=== PATIENT | male | born 1950 | race Caucasian/White ===

== ENCOUNTER 2019-03-10 06:19 | Inpatient (IN) | payer OTHER ==
[2019-03-05 09:44] VITALS: BMI 34.2
[2019-03-10] MEDS ORDERED: CEFAZOLIN 2 GM in DEXTROSE 5%-WATER - 50 ML IVPB ONE (06:24)
[2019-03-10] MEDS ORDERED: GABAPENTIN 300 MG CAPSULE (FP) PO ONE (06:24)
[2019-03-10] MEDS ORDERED: TRANEXAMIC ACID 1000 MG/10 ML VIAL IVPUSH ONE (06:24)
[2019-03-10] MEDS ORDERED: CELECOXIB 200 MG CAPSULE PO ONE (06:24)
[2019-03-10] MEDS ORDERED: oxyCODONE HCL 10 MG SUSTAINED ACTING TABLET PO ONE (06:24)
[2019-03-10] MEDS ORDERED: VANCOMYCIN 1,000 MG VIAL (RESTRICTED TO ID ONLY) ONE (06:40)
[2019-03-10] MEDS ORDERED: ceFAZolin SODIUM 1 GM VIAL ONE ×2 (06:40→07:10)
[2019-03-10] MEDS ORDERED: BUPIVACAINE LIPOSOME/PF (EXPAREL) 266 MG/20 ML VIAL ONE (06:44)
[2019-03-10] MEDS ORDERED: MIDAZOLAM HCL 2 MG/2 ML SINGLE DOSE VIAL ONE (06:44)
[2019-03-10] MEDS ORDERED: SODIUM CHLORIDE 0.9% P/F 10 ML VIAL IJ ONE (07:09)
[2019-03-10] MEDS ORDERED: PROPOFOL 20 ML ONE ×2 (07:11→07:14)
[2019-03-10] MEDS ORDERED: SUCCINYLCHOLINE CHLORIDE 200 MG/10 ML VIAL ONE (07:17)
[2019-03-10] MEDS ORDERED: ONDANSETRON 4 MG/2 ML VIAL IVPUSH PRN (07:26)
[2019-03-10] MEDS ORDERED: MAGNESIUM HYDROX 2400MG/30ML ORAL SUSPENSION 30 ML CUP PO PRN (07:26)
[2019-03-10] MEDS ORDERED: MAG HYDROX/AL HYDROX/SIMETH 30 ML UNIT-DOSE CUP PO PRN (07:26)
--- NOTE | 2019-03-10 07:26 | HP ---
Satellite [facility] - Chief Complaint Chief Complaint: right knee pain - Past Medical History Allergies/Adverse Reactions: Allergies Allergy/AdvReac Type Severity Reaction Status Date / Time No Known Allergies Allergy Verified 03/10/19 06:53 - Current Medications Current Medications: Home Medications Medication Instructions Recorded Tamsulosin HCl [Flomax] 0.4 mg PO HS 03/05/19 Satellite Physical Exam - Physical Examination Vital Signs: Vital Signs Period Temp Pulse Resp BP Sys/Booker Pulse Ox Last 24 Hr 98.6 F 76 16 123/89 95 General Appearance: Well Nourished, Well Developed, Alert & Oriented x3 ENT: Clear Lung: Normal air movement Heart: Regular rate & rhythm Extremities: Other (right knee- + swelling, + ttp , decr rom ,nvi, xrays show grade 4 tricompartmental djd) Neurological: Intact, Alert, Oriented Satellite Impression/Plan - Impression/Plan Impression: right knee djd Operative Procedure: right loyd tkr Date to be Performed: 03/10/19
[2019-03-10] MEDS ORDERED: LACTATED RINGERS SOLUTION 1,000 ML IV SCH (07:30)
[2019-03-10] MEDS ORDERED: oxyCODONE HCL 5 MG TABLET PO PRN (09:03)
[2019-03-10] MEDS ORDERED: VANCOMYCIN 1,000 MG VIAL (RESTRICTED TO ID ONLY) IVPB ONE (09:12)
--- NOTE | 2019-03-10 09:46 | OP ---
Operative Note - Note: Operative Date: 03/10/19 (mello) Pre-Operative Diagnosis: right knee djd Operation: right loyd tkr Post-Operative Diagnosis: Same as Pre-op Surgeon: Clem Pete Forge Hand: Lorenzo Castillo Anesthesiologist/EGG PACKER: Tyson Schneider Anesthesia: Spinal, Local Specimens Removed: bone fragments Estimated Blood Loss (mls): 100 Operative Report Dictated: Yes
[2019-03-10] MEDS ORDERED: oxyCODONE HCL 10 MG SUSTAINED ACTING TABLET PO SCH (10:00)
[2019-03-10] MEDS ORDERED: ACETAMINOPHEN 325 MG TABLET (FP) PO ONE (10:30)
[2019-03-10] MEDS: PANTOPRAZOLE 40 MG TABLET (FP) PO SCH (12:31)
[2019-03-10] MEDS: MULTIVITAMINS (DAILY MVI) TABLET (FP) PO SCH (12:40)
--- NOTE | 2019-03-10 13:31 | CONSULT ---
Consult Consult Specialty:: IM Referred by:: Dr Clem Pete Reason for Consultation:: medical management - History of Present Illness Chief Complaint: right knee pain History of Present Illness: 68 yo man came in for left loyd thr due to ongoing DJD which has become severe. denies chest pain, palpitations, nausea, vomiting, diarrhea, fever - History Source History Provided By: Patient Limitations to Obtaining History: No Limitations - Past Medical History Cardio/Vascular: Yes: HTN Renal/: Yes: BPH - Alcohol/Substance Use Hx Alcohol Use: Yes (OCCASIONALLY) - Smoking History Smoking history: Never smoked Have you smoked in the past 12 months: No Home Medications - Allergies Allergies/Adverse Reactions: Allergies Allergy/AdvReac Type Severity Reaction Status Date / Time No Known Allergies Allergy Verified 03/10/19 06:53 - Home Medications Home Medications: Ambulatory Orders Tamsulosin HCl [Flomax] 0.4 mg PO HS 03/05/19 Aspirin [ASA -] 325 mg PO DAILY@0800 tablet 03/10/19 Oxycodone HCl/Acetaminophen [Percocet 5-325 mg Tablet -] 1 - 2 tab PO Q6H #50 tab MDD 8 03/10/19 Review of Systems - Review of Systems Constitutional: reports: No Symptoms Eyes: reports: No Symptoms HENT: reports: No Symptoms Neck: reports: No Symptoms Cardiovascular: reports: No Symptoms Respiratory: reports: No Symptoms Gastrointestinal: reports: No Symptoms Genitourinary: reports: Frequency Musculoskeletal: reports: Joint Pain (right knee post-op pain) Integumentary: reports: No Symptoms Neurological: reports: No Symptoms Endocrine: reports: No Symptoms Hematology/Lymphatic: reports: No Symptoms Physical Exam Vital Signs: Vital Signs Temperature 98 F 03/10/19 11:26 Pulse Rate 55 L 03/10/19 11:26 Respiratory Rate 18 03/10/19 12:52 Blood Pressure 110/66 03/10/19 11:26 O2 Sat by Pulse Oximetry (%) 100 03/10/19 12:52 Constitutional: Yes: Well Nourished Eyes: Yes: WNL HENT: Yes: WNL Neck: Yes: WNL Cardiovascular: Yes: WNL Respiratory: Yes: WNL Gastrointestinal: Yes: WNL ...Rectal Exam: Yes: WNL, Deferred Renal/: Yes: WNL Musculoskeletal: Yes: Joint Stiffness (right knee post-op stiffness) Extremities: Yes: WNL Edema: No Integumentary: Yes: WNL Wound/Incision: Yes: Clean/Dry, Well Approximated Neurological: Yes: WNL Psychiatric: Yes: WNL Assessment/Plan 68 yo man right loyd tkr today. no complications. cont pain management. incentive spirometry. -GI, DVT prophylaxis. -peripheral neuropathy: on neurontin -constipation: cont colace, senna. improving -BPH: on flomax, proscar -oral diet -PT/OT/OOB as tolerated -DC planned for tomorrow.
[2019-03-10] MEDS: CEFAZOLIN 2 GM/D5W 2 GM/50 ML ML IVPB SCH ×2 (16:50→23:21)
[2019-03-10] MEDS: ACETAMINOPHEN 325 MG TABLET (FP) PO SCH ×2 (18:01→23:22)
--- NOTE | 2019-03-10 18:10 | SPEC ---
DATE OF OPERATION: 03/10/2019 PREOPERATIVE DIAGNOSIS: Degenerative joint disease, right knee. POSTOPERATIVE DIAGNOSIS: Degenerative joint disease, right knee. PROCEDURE: Right total knee replacement with robotic-assisted navigation (Makoplasty). SURGICAL ATTENDING: Clem Pete M.D. LEAD REFINERY SUPERVISOR: Yunior Lutz ANESTHESIA: Regional and spinal. CLOSURE: A Graham cemented Triathlon total knee system with a 5 femur, 6 tibia, 9 polyethylene, 35 patella, number 1 Vicryl fascia, 0 and 2-0 subcutaneous, 3-0 Monocryl subcuticular with skin glue for skin, 4-0 undyed Vicryl for pin sites. ESTIMATED BLOOD LOSS: Negligible. TOURNIQUET TIME: Approximately 25 minutes. COMPLICATIONS: None. CONDITION: To recovery room in stable condition. DESCRIPTION OF OPERATIVE PROCEDURE: Patient was taken to the operating room on March 10, 2019. Regional and general anesthesia was administered by the anesthesiologist. IV Kefzol and TXA were administered by the anesthesiologist. Well-padded pneumatic tourniquet was placed on the proximal thigh. The right lower extremity was prepped and draped in the usual sterile fashion. The leg was exsanguinated with an Esmarch bandage, and tourniquet was inflated to 275 mmHg. A 12 to 15-cm longitudinal midline incision was incised while centered over the patella. The dissection was carried down to the level of the extensor mechanism with sufficient flaps made to adequately perform the procedure. A medial parapatellar arthrotomy was then performed. We made a cuff of tissue on the patella for later closure. The patella was inverted, the knee was flexed up. The fat pad was excised. The subperiosteal dissection was on the anteromedial proximal tibia around towards the direction of the MCL. The ACL and the PCL were transected and debrided. The meniscal remnants of the medial and lateral meniscus were debrided and removed. This allowed the knee to be able to "be brought forward." The checkpoints were malleted into the tibia and into the femur. Two threaded pins were drilled anteroposteriorly proximal to the knee through the previous incision, through the anterior cortex, then just engaging the posterior cortex. To these pins was assembled the femoral navigation array. One handbreadth below the tibial tubercle, 2 stab incisions were used to drill 2 threaded pins in parallel fashion into the tibia, again through the anterior cortex and just engaging the posterior cortex. To these pins was fastened the tibial arrays. The knee was then registered with the navigation device with center of rotation of the hip, medial and lateral malleoli, both checkpoints, and multiple points on both the femur and the tibia to ensure excellent registration. The navigation device was directed off the "top of the bubbles" on both the femur and the tibia. The navigation passed within less than 0.5 mm to plan. The knee was then thoroughly inspected to remove all osteophytes both medially, laterally, and on the femur and the tibia, and whatever osteophytes were available for dissection. The knee was then taken to extension and to flexion, and stressed in both varus and valgus to assess flexion gaps. The virtual position of the components on the navigation device were then manipulated to optimize the position and to ensure equal gaps in both flexion and extension, and both medially and laterally. The robot was then brought into the field and was registered. The cuts were then made both on the femur and on the tibia as to plan. All osteophytes posteriorly were then removed as well. The gaps were then measured again in flexion and extension to be equal in both flexion and extension and medial and laterally. The femoral notch was then made, as we were doing a posterior stabilizing component, with the appropriate sized box. Trial reduction of the femur achieved excellent [id number] fit. A tibial baseplate of appropriate polyethylene thickness was "floated in the knee." It was ensured to be in the excellent position by navigation devices and was pinned in place. The knee was taken through a range of motion, and found to have excellent stability throughout flexion and extension. The patella was calibrated for thickness and osteotomized down to the appropriate level. The appropriate lollipop was used to drill the lug holes in the patella and the trial button was applied. The knee was taken through a range of motion and found to have excellent tracking of the patella, and patella from full extension to full flexion. Trial components were removed, the keel was punched and drilled, and a sclerotic bone on the tibia was drilled to help with cement interdigitation. The knee was thoroughly irrigated with the pulse antibiotic naval police coxswain. The real components were then cemented in using monitored arrangement cement techniques with antibiotic cement, and pressurization and extension. After the cement was hardened, the knee was thoroughly inspected to remove any extra cement. The real polyethylene component was then clipped into place. Range of motion, stability, and tracking were as described earlier. The checkpoints and the pins were removed. The knee was thoroughly irrigated with antibiotic irrigation. Vancomycin powder was placed into the knee for antibiotic prophylaxis. The medial parapatellar arthrotomy was then closed using number 1 Vicryl interrupted suture. After closure of the deep layer, the knee was taken through a range of motion, and found to have excellent stability of the patella with no dislocation and no undue tension on the repair. The subcutaneous was pulse antibiotic irrigated, and was then closed with 2-0 Vicryl, 3-0 Monocryl subcuticular with the skin glue for the skin. The distal tibial pin site was irrigated thoroughly as well and then closed with 4-0 undyed Vicryl. A sterile Aquacel dressing was applied, followed by a Cruz dressing. Tourniquet was deflated. Total tourniquet time was approximately 25 minutes. No complications. Patient was awakened from anesthesia and transferred to recovery room in stable condition. Postoperative x-rays revealed excellent position of the components. Nicki [id number]
[2019-03-10] MEDS: oxyCODONE HCL 10 MG SUSTAINED ACTING TABLET PO SCH (21:03)
[2019-03-10] MEDS: TAMSULOSIN HCL 0.4 MG CAP PO SCH (21:07)
[2019-03-10] MEDS: SENNOSIDES/DOCUSATE COMBO (SENNA PLUS) TABLET (UD) PO SCH (21:07)
[2019-03-10] MEDS: GABAPENTIN 300 MG CAPSULE (FP) PO SCH (21:07)
[2019-03-11] MEDS: ACETAMINOPHEN 325 MG TABLET (FP) PO SCH ×3 (05:52→18:26)
[2019-03-11] MEDS: oxyCODONE HCL 5 MG TABLET PO PRN ×3 (05:53→21:24)
[2019-03-11 08:08] LABS: HEMATOCRIT 36.6 % (35.4-49); HEMOGLOBIN 12.5 GM/dl (11.7-16.9); MCH 29.3 pg (25.7-33.7); MCHC 34.2 g/dl (32.0-35.9); MEAN CELL VOLUME 85.7 fl (80-96); MEAN PLT VOLUME 7.6 fl (7.5-11.1); PLATELET COUNT 323 K/MM3 (134-434); RBC 4.27 M/mm3 (4.00-5.60); RDW 13.3 % (11.9-15.9); WHITE BLOOD COUNT 10.4 K/mm3 (4.0-10.8)
[2019-03-11] MEDS: ASPIRIN 325 MG TABLET PO SCH (08:08)
--- NOTE | 2019-03-11 08:28 | PN ---
Progress Note (short form) - Note Progress Note: Ortho Pt seen and examined s/p right loyd tkr pod #1 Selected Entries 03/11/19 06:19 Temperature 98.3 F Pulse Rate 74 Respiratory 19 Rate Blood Pressure 125/65 Laboratory Tests 03/11/19 06:55 WBC 10.4 Hgb 12.5 Hct 36.6 Plt Count 323 dressing c/d/i, calf soft, nt rom 0-40, nvi a/p PT dvt ppx pain control d/c home tomorrow if stable
[2019-03-11] MEDS: PANTOPRAZOLE 40 MG TABLET (FP) PO SCH (10:07)
[2019-03-11] MEDS: MULTIVITAMINS (DAILY MVI) TABLET (FP) PO SCH (10:07)
[2019-03-11] MEDS: SENNOSIDES/DOCUSATE COMBO (SENNA PLUS) TABLET (UD) PO SCH ×2 (10:07→21:24)
[2019-03-11] MEDS: oxyCODONE HCL 10 MG SUSTAINED ACTING TABLET PO SCH ×2 (10:08→21:24)
[2019-03-11] MEDS: GABAPENTIN 300 MG CAPSULE (FP) PO SCH ×2 (10:09→21:24)
--- NOTE | 2019-03-11 10:13 | PN ---
Progress Note, Physician History of Present Illness: 68 yo man came in for left loyd thr due to ongoing DJD which has become severe. denies chest pain, palpitations, nausea, vomiting, diarrhea, fever - Current Medication List Current Medications: Active Medications Acetaminophen (Tylenol -) 650 mg PO Q6H COUNT INCLUDES THE [facility] Stop: 03/13/19 17:59 Last Admin: 03/11/19 05:52 Dose: 650 mg Al Hydroxide/Mg Hydroxide (Mylanta Oral Suspension -) 30 ml PO Q4H PRN PRN Reason: DYSPEPSIA Aspirin (Asa -) 325 mg PO DAILY@0800 COUNT INCLUDES THE [facility] Last Admin: 03/11/19 08:08 Dose: 325 mg Fentanyl (Sublimaze Injection -) 50 mcg IVPUSH [id number] PRN PRN Reason: PAIN-PACU ORDER X 4 DOSES ONLY Gabapentin (Neurontin -) 300 mg PO BID COUNT INCLUDES THE [facility] Last Admin: 03/11/19 10:09 Dose: 300 mg Magnesium Hydroxide (Milk Of Magnesia -) 30 ml PO PRN PRN PRN Reason: CONSTIPATION Multivitamins/Minerals/Vitamin C (Tab-A-Vit -) 1 tab PO DAILY COUNT INCLUDES THE [facility] Last Admin: 03/11/19 10:07 Dose: 1 tab Ondansetron HCl (Zofran Injection) 4 mg IVPUSH Q6H PRN PRN Reason: NAUSEA Oxycodone HCl (Roxicodone -) 5 mg PO Q3H PRN PRN Reason: PAIN LEVEL 1-5 Oxycodone HCl (Roxicodone -) 10 mg PO Q3H PRN PRN Reason: PAIN LEVEL 6-10 Last Admin: 03/11/19 05:53 Dose: 10 mg Oxycodone HCl (Oxycontin -) 10 mg PO BID COUNT INCLUDES THE [facility] Last Admin: 03/11/19 10:08 Dose: 10 mg Pantoprazole Sodium (Protonix -) 40 mg PO DAILY COUNT INCLUDES THE [facility] Last Admin: 03/11/19 10:07 Dose: 40 mg Senna/Docusate Sodium (Pericolace -) 2 tablet PO BID COUNT INCLUDES THE [facility] Last Admin: 03/11/19 10:07 Dose: 2 tablet Tamsulosin HCl (Flomax -) 0.4 mg PO HS COUNT INCLUDES THE [facility] Last Admin: 03/10/19 21:07 Dose: 0.4 mg - Objective Vital Signs: Vital Signs Temperature 98 F 03/11/19 08:42 Pulse Rate 79 03/11/19 08:42 Respiratory Rate 18 03/11/19 08:42 Blood Pressure 128/65 03/11/19 08:42 O2 Sat by Pulse Oximetry (%) 96 03/11/19 08:35 Constitutional: Yes: Well Nourished Eyes: Yes: WNL HENT: Yes: WNL Neck: Yes: WNL Cardiovascular: Yes: WNL Respiratory: Yes: WNL Gastrointestinal: Yes: WNL ...Rectal Exam: Yes: WNL, Deferred Genitourinary: Yes: WNL Musculoskeletal: Yes: WNL Extremities: Yes: WNL Edema: No Integumentary: Yes: WNL Wound/Incision: Yes: Clean/Dry, Well Approximated Neurological: Yes: WNL ...Motor Strength: WNL Labs: CBC, BMP 03/11/19 06:55 Assessment/Plan 68 yo man right loyd tkr POD #1. no complications. now getting PT. well tolerated. cont pain management. incentive spirometry. -GI, DVT prophylaxis. -peripheral neuropathy: on neurontin -constipation: cont colace, senna. improving -BPH: on flomax, proscar -oral diet -PT/OT/OOB as tolerated -blood work reviewed. WNL -DC planned for tomorrow.
[2019-03-11] MEDS: TAMSULOSIN HCL 0.4 MG CAP PO SCH (21:23)
[2019-03-12 06:15] VITALS: TEMP 98.1
[2019-03-12] MEDS: ACETAMINOPHEN 325 MG TABLET (FP) PO SCH ×3 (06:25→11:44)
[2019-03-12] MEDS: oxyCODONE HCL 5 MG TABLET PO PRN (06:26)
--- NOTE | 2019-03-12 07:24 | PN ---
Progress Note, Physician History of Present Illness: 68 yo man came in for left loyd thr due to ongoing DJD which has become severe. denies chest pain, palpitations, nausea, vomiting, diarrhea, fever - Current Medication List Current Medications: Active Medications Acetaminophen (Tylenol -) 650 mg PO Q6H [facility] Stop: 03/13/19 17:59 Last Admin: 03/12/19 06:25 Dose: 650 mg Al Hydroxide/Mg Hydroxide (Mylanta Oral Suspension -) 30 ml PO Q4H PRN PRN Reason: DYSPEPSIA Aspirin (Asa -) 325 mg PO DAILY@0800 [facility] Last Admin: 03/11/19 08:08 Dose: 325 mg Fentanyl (Sublimaze Injection -) 50 mcg IVPUSH [id number] PRN PRN Reason: PAIN-PACU ORDER X 4 DOSES ONLY Gabapentin (Neurontin -) 300 mg PO BID [facility] Last Admin: 03/11/19 21:24 Dose: 300 mg Magnesium Hydroxide (Milk Of Magnesia -) 30 ml PO PRN PRN PRN Reason: CONSTIPATION Multivitamins/Minerals/Vitamin C (Tab-A-Vit -) 1 tab PO DAILY [facility] Last Admin: 03/11/19 10:07 Dose: 1 tab Ondansetron HCl (Zofran Injection) 4 mg IVPUSH Q6H PRN PRN Reason: NAUSEA Oxycodone HCl (Roxicodone -) 5 mg PO Q3H PRN PRN Reason: PAIN LEVEL 1-5 Oxycodone HCl (Roxicodone -) 10 mg PO Q3H PRN PRN Reason: PAIN LEVEL 6-10 Last Admin: 03/12/19 06:26 Dose: 10 mg Oxycodone HCl (Oxycontin -) 10 mg PO BID [facility] Last Admin: 03/11/19 21:24 Dose: 10 mg Pantoprazole Sodium (Protonix -) 40 mg PO DAILY [facility] Last Admin: 03/11/19 10:07 Dose: 40 mg Senna/Docusate Sodium (Pericolace -) 2 tablet PO BID [facility] Last Admin: 03/11/19 21:24 Dose: 2 tablet Tamsulosin HCl (Flomax -) 0.4 mg PO HS [facility] Last Admin: 03/11/19 21:23 Dose: 0.4 mg - Objective Vital Signs: Vital Signs Temperature 98.1 F 03/12/19 06:00 Pulse Rate 105 H 06/07/19 06:00 Respiratory Rate 18 03/12/19 06:00 Blood Pressure 121/79 03/12/19 06:00 O2 Sat by Pulse Oximetry (%) 97 03/12/19 06:00 Constitutional: Yes: Well Nourished, No Distress Eyes: Yes: WNL HENT: Yes: WNL Neck: Yes: WNL Cardiovascular: Yes: WNL Respiratory: Yes: WNL Gastrointestinal: Yes: WNL Musculoskeletal: Yes: WNL Extremities: Yes: WNL Edema: No Assessment/Plan 68 yo man right loyd tkr POD #2. no complications. PT is well tolerated. cont pain management. incentive spirometry. -GI, DVT prophylaxis. -peripheral neuropathy: on neurontin -constipation: cont colace, senna. improving -BPH: on flomax, proscar -oral diet -PT/OT/OOB as tolerated -blood work reviewed. WNL -DC planned for today
--- NOTE | 2019-03-12 08:10 | PN ---
Progress Note (short form) - Note Progress Note: Ortho Pt seen and examined s/p right loyd tkr pod #2 Selected Entries 03/12/19 06:00 Temperature 98.1 F Pulse Rate 105 H Respiratory 18 Rate Blood Pressure 121/79 Laboratory Tests 03/12/19 06:58 WBC Pending Hgb Pending Hct Pending Plt Count Pending dressing c/d/i, calf soft, nt rom 0-40, nvi a/p PT dvt ppx pain control d/c home today f/u in 1 week
--- NOTE | 2019-03-12 08:12 | DS ---
Physical Examination Vital Signs: Vital Signs Temperature 98.1 F 03/12/19 06:00 Pulse Rate 105 H 03/12/19 06:00 Respiratory Rate 18 03/12/19 06:00 Blood Pressure 121/79 03/12/19 06:00 O2 Sat by Pulse Oximetry (%) 97 03/12/19 06:00 Discharge Summary Reason For Visit: OSTEOARTHRITIS Procedures: Principal: right tkr Hospital Course: admitted for elective right loyd tkr, uneventful post-op, stable for d/c Condition: Good - Instructions Diet, Activity, Other Instructions: Post-op Instructions-Total Knee Replacement Call the office for a follow-up appointment in 1 week - [phone] Aspirin 325mg daily for 6 weeks. Pain medication was sent into your pharmacy. Apply Graduated Compression Stockings (TEDs) to both lower extremities- remove daily for hygiene ONLY Apply Sequential Compression Device (SCDs) to both Lower extremities remove for PT and hygiene ONLY Apply cold packs to affected area for 15 minutes every 2 hours. Physical Therapist will come to your home for the first 5 days. You will be set up with outpatient PT at your first post-operative visit. Patient may ambulate as tolerated-encourage self care (at least every 2-3 hours while awake) with walker or cane Maintain Aquacel (waterproof) dressing to operative wound (will be removed by surgeon at first office visit) Shower with Aquacel dressing in place-if Aquacel integrity compromised, remove and apply dry sterile dressing and notify Orthopedist. DO NOT SHOWER unless Orthopedists approves without Aquacel dressing CONTACT THE OFFICE FOR ANY CHANGE IN YOUR CONDITION (for example-fever greater than 102 degrees, excessive bleeding from operative site, purulent drainage, severe swelling or pain) GO TO THE EMERGENCY ROOM IF THERE IS A MEDICAL EMERGENCY Knee Precautions: * Keep a rolled towel under affected heel while in bed or chair (to keep knee in extension) * Keep affected leg elevated except during mealtimes * DO NOT PLACE PILLOW UNDER AFFECTED KNEE * If you have any questions, please do not hesitate to call the office - . Referrals: Clem Pete MD [Staff Physician] - Disposition: VNS/HOME HEALTH CARE - Home Medications Comprehensive Discharge Medication List: Ambulatory Orders Tamsulosin HCl [Flomax] 0.4 mg PO HS 03/05/19 Aspirin [ASA -] 325 mg PO DAILY@0800 tablet 03/10/19 Oxycodone HCl/Acetaminophen [Percocet 5-325 mg Tablet -] 1 - 2 tab PO Q6H #50 tab MDD 8 03/10/19
[2019-03-12 08:13] LABS: HEMATOCRIT 36.8 % (35.4-49); HEMOGLOBIN 12.3 GM/dl (11.7-16.9); MCH 28.8 pg (25.7-33.7); MCHC 33.3 g/dl (32.0-35.9); MEAN CELL VOLUME 86.3 fl (80-96); MEAN PLT VOLUME 7.9 fl (7.5-11.1); PLATELET COUNT 311 K/MM3 (134-434); RBC 4.26 M/mm3 (4.00-5.60); WHITE BLOOD COUNT 9.1 K/mm3 (4.0-10.8)
[2019-03-12] MEDS: ASPIRIN 325 MG TABLET PO SCH (08:30)
[2019-03-12 10:04] VITALS: BP 136/74; PULSE 94
[2019-03-12] MEDS: SENNOSIDES/DOCUSATE COMBO (SENNA PLUS) TABLET (UD) PO SCH (10:05)
[2019-03-12] MEDS: GABAPENTIN 300 MG CAPSULE (FP) PO SCH (10:05)
[2019-03-12] MEDS: MULTIVITAMINS (DAILY MVI) TABLET (FP) PO SCH (10:06)
[2019-03-12] MEDS: oxyCODONE HCL 10 MG SUSTAINED ACTING TABLET PO SCH (10:06)
[2019-03-12] MEDS: PANTOPRAZOLE 40 MG TABLET (FP) PO SCH (10:06)
--- NOTE | 2019-03-12 15:38 | PATH ---
Surgical Pathology Report Patient Name: LORETTA FRIEDMAN Med. Rec. #: [id number] /Age/Gender: 1950 (Age: 68) / M Account: [id number] Location: [facility] Taken: 03/10/2019 Received: 03/10/2019 Reported: 03/12/2019 Physicians: Clem Pete M.D. Specimen(s) Received RIGHT KNEE BONES Clinical History Osteoarthritis right knee Final Diagnosis RIGHT KNEE BONES, RESECTION: DEGENERATIVE JOINT DISEASE, RIGHT KNEE. Electronically Signed Nelly Rubio M.D. Gross Description Received in formalin labeled "right knee bones," is a 12.0 x 10.0 x 1.5 cm aggregate of multiple portions of bone and soft tissue, consistent with knee bones. The tibial plateau measures 7.6 x 5.4 x 1.6 cm. One of the portions of bone displays a 2.0 cm in greatest dimension area of eburnation. The remaining articular surfaces are haddad-yellow and diffusely granular. The underlying trabecular bone is yellow and hard. Sporting Goods Salesperson sections are submitted in one cassette, following decalcification. /03/11/2019 saudi03/11/2019
== END 2019-03-12 13:25 | disposition home health service (06) | DRG 470 ==
LOC: FM/S 06:19
PROVIDERS: ADMIT Orthopaedic Surgery; ATTEND Orthopaedic Surgery
PROC: 8E0YXCZ Robotic Assisted Procedure of Lower Extremity (ICD-10-PCS; 2019-03-10)
PROC: 0SRC0J9 Replacement of Right Knee Joint with Synthetic Substitute, Cemented, Open Approach (ICD-10-PCS; principal; 2019-03-10 07:59)
DX: M17.11 Unilateral primary osteoarthritis, right knee (principal); I10 Essential (primary) hypertension; N40.0 Benign prostatic hyperplasia without lower urinary tract symptoms; G62.9 Polyneuropathy, unspecified; K59.00 Constipation, unspecified
CPT/HCPCS: 36415; 73560-TC-RT-FY; 85027; 88304-TC; 88311-TC; 94760; 97116-GP; 97163-GP

== ENCOUNTER 2019-07-09 08:49 | Inpatient (IN) | payer OTHER ==
--- NOTE | 2019-07-09 08:06 | HP ---
Satellite H - Chief Complaint Chief Complaint: left knee pain - Past Medical History Allergies/Adverse Reactions: Allergies Allergy/AdvReac Type Severity Reaction Status Date / Time No Known Allergies Allergy Verified 06/28/19 11:46 Cardiovascular: Yes: HTN Renal/: Yes: BPH - Current Medications Current Medications: Home Medications Medication Instructions Recorded Tamsulosin HCl [Flomax] 0.4 mg PO HS 03/05/19 Oxycodone HCl/Acetaminophen 1 - 2 tab PO Q6H #50 tab MDD 8 03/10/19 [Percocet 5-325 mg Tablet -] Satellite Physical Exam - Physical Examination General Appearance: Well Nourished, Well Developed, Alert & Oriented x3 ENT: Clear Lung: Normal air movement Heart: Regular rate & rhythm Extremities: Other (left knee- + Swelling, + ttp, decr rom, nvi, xrays show grade 4 tricompartmental djd) Neurological: Intact, Alert, Oriented Satellite Impression/Plan - Impression/Plan Impression: left knee djd Operative Procedure: left loyd tkr Date to be Performed: 07/09/19
[2019-07-09] MEDS ORDERED: TRANEXAMIC ACID 1000 MG/10 ML VIAL IVPUSH ONE (08:59)
[2019-07-09] MEDS ORDERED: CELECOXIB 200 MG CAPSULE PO ONE ×2 (08:59→09:30)
[2019-07-09] MEDS ORDERED: CEFAZOLIN 2 GM in DEXTROSE 5%-WATER - 50 ML IVPB ONE (08:59)
[2019-07-09] MEDS ORDERED: DEXAMETHASONE SOD PHOSPHATE 4 MG/1 ML VIAL ONE (09:03)
[2019-07-09] MEDS ORDERED: ONDANSETRON 4 MG/2 ML VIAL ONE (09:03)
[2019-07-09] MEDS ORDERED: ceFAZolin SODIUM 1 GM VIAL ONE ×2 (09:03→10:46)
[2019-07-09] MEDS ORDERED: MIDAZOLAM HCL 2 MG/2 ML SINGLE DOSE VIAL ONE (09:10)
[2019-07-09] MEDS ORDERED: BUPIVACAINE LIPOSOME/PF (EXPAREL) 266 MG/20 ML VIAL ONE (09:11)
[2019-07-09] MEDS ORDERED: TRANEXAMIC ACID 1000 MG/10 ML VIAL ONE ×2 (09:14)
[2019-07-09 09:42] VITALS: BMI 33.7
[2019-07-09] MEDS ORDERED: VANCOMYCIN 1,000 MG VIAL (RESTRICTED TO ID ONLY) ONE (10:46)
[2019-07-09] MEDS ORDERED: GELATIN, ABSORBABLE 12-7MM EACH SPONGE TP ONE (10:46)
[2019-07-09] MEDS ORDERED: THROMBIN (RECOMBINANT) 5,000 UNIT VIAL TP ONE (10:46)
[2019-07-09] MEDS ORDERED: MAG HYDROX/AL HYDROX/SIMETH 30 ML UNIT-DOSE CUP PO PRN (11:32)
[2019-07-09] MEDS ORDERED: MAGNESIUM HYDROX 2400MG/30ML ORAL SUSPENSION 30 ML CUP PO PRN (11:32)
[2019-07-09] MEDS ORDERED: ONDANSETRON 4 MG/2 ML VIAL IVPUSH PRN ×2 (11:32→13:04)
[2019-07-09] MEDS ORDERED: LACTATED RINGERS SOLUTION 1,000 ML IV SCH ×2 (11:45→13:15)
[2019-07-09] MEDS ORDERED: PROPOFOL 20 ML ONE (12:45)
[2019-07-09] MEDS ORDERED: VANCOMYCIN 1,000 MG VIAL (RESTRICTED TO ID ONLY) IVPB ONE (13:01)
[2019-07-09] MEDS ORDERED: traMADol HCL 50 MG TABLET PO PRN (13:04)
[2019-07-09] MEDS ORDERED: oxyCODONE HCL 5 MG TABLET PO PRN (13:04)
[2019-07-09] MEDS ORDERED: ONDANSETRON 4 MG/2 ML VIAL IVPB PRN (13:11)
--- NOTE | 2019-07-09 13:21 | OP ---
Operative Note - Note: Operative Date: 07/09/19 (mello) Pre-Operative Diagnosis: left knee djd Operation: left loyd tkr Post-Operative Diagnosis: Same as Pre-op Surgeon: Clem Pete Mortgage Loan Officer: Lorenzo Castillo Anesthesiologist/SHAPER SETTER: Hortencia Bhakta Anesthesia: Spinal, Local Specimens Removed: bone fragments Estimated Blood Loss (mls): 100 Operative Report Dictated: Yes
[2019-07-09] MEDS: ACETAMINOPHEN 325 MG TABLET (FP) PO SCH ×2 (14:15→21:12)
--- NOTE | 2019-07-09 18:17 | CONSULT ---
Consult - Past Medical History Cardio/Vascular: Yes: HTN Renal/: Yes: BPH Musculoskeletal: Yes: Osteoarthritis - Alcohol/Substance Use Hx Alcohol Use: Yes (OCCASIONALLY) - Smoking History Smoking history: Never smoked Have you smoked in the past 12 months: No Home Medications - Allergies Allergies/Adverse Reactions: Allergies Allergy/AdvReac Type Severity Reaction Status Date / Time No Known Allergies Allergy Verified 07/09/19 09:22 - Home Medications Home Medications: Ambulatory Orders Tamsulosin HCl [Flomax] 0.4 mg PO HS 03/05/19 Aspirin [ASA -] 325 mg PO DAILY@0800 tablet 07/09/19 Oxycodone HCl/Acetaminophen [Percocet 5-325 mg Tablet] 1 - 2 tab PO Q6H #50 tab MDD 8 07/09/19 Review of Systems - Review of Systems Cardiovascular: reports: No Symptoms Respiratory: reports: No Symptoms Gastrointestinal: reports: No Symptoms Physical Exam Vital Signs: Vital Signs Temperature 97.5 F L 07/09/19 15:03 Pulse Rate 64 07/09/19 15:03 Respiratory Rate 18 07/09/19 15:03 Blood Pressure 108/61 07/09/19 15:03 O2 Sat by Pulse Oximetry (%) 99 07/09/19 15:03 Cardiovascular: Yes: Regular Rate and Rhythm Respiratory: Yes: Regular, CTA Bilaterally Gastrointestinal: Yes: Normal Bowel Sounds, Soft Musculoskeletal: Yes: Joint Stiffness, Joint Swelling Edema: No Problem List - Problems (1) HTN (hypertension) Assessment/Plan: MONITOR BP EKG Code(s): I10 - ESSENTIAL (PRIMARY) HYPERTENSION (2) BPH (benign prostatic hyperplasia) Assessment/Plan: MONITOR UO Code(s): N40.0 - BENIGN PROSTATIC HYPERPLASIA WITHOUT LOWER URINRY TRACT SYMP (3) Osteoarthritis Assessment/Plan: Operative Date: 07/09/19 (mello) Pre-Operative Diagnosis: left knee djd Operation: left loyd tkr Post-Operative Diagnosis: Same as Pre-op Surgeon: Clem Pete [employer]ied Natural [employer] Plant Operator: Lorenzo Castillo Code(s): M19.90 - UNSPECIFIED OSTEOARTHRITIS, UNSPECIFIED SITE
[2019-07-09] MEDS: CEFAZOLIN 2 GM/D5W 2 GM/50 ML ML IVPB SCH (20:14)
[2019-07-09] MEDS: oxyCODONE HCL 10 MG SUSTAINED ACTING TABLET PO SCH (21:09)
[2019-07-09] MEDS: SENNOSIDES/DOCUSATE COMBO (SENNA PLUS) TABLET (UD) PO SCH (21:09)
[2019-07-09] MEDS: oxyCODONE HCL 5 MG TABLET PO PRN (21:10)
[2019-07-09] MEDS: TAMSULOSIN HCL 0.4 MG CAP PO SCH (21:10)
[2019-07-10] MEDS: ACETAMINOPHEN 325 MG TABLET (FP) PO SCH ×4 (03:38→21:18)
[2019-07-10] MEDS: CEFAZOLIN 2 GM/D5W 2 GM/50 ML ML IVPB SCH (03:38)
--- NOTE | 2019-07-10 06:36 | SPEC ---
DATE OF OPERATION: 07/09/2019 PREOPERATIVE DIAGNOSIS: Degenerative joint disease, left knee. POSTOPERATIVE DIAGNOSIS: Degenerative joint disease, left knee. PROCEDURE: Left total knee replacement with robotic-assisted navigation (Makoplasty). SURGICAL ATTENDING: Clem Pete MD [employer] TRUCK DISPATCHER: JONAS Lutz ANESTHESIA: Regional and spinal. CLOSURE: A Triathlon cemented total knee system with a 5 femur, 6 tibia, 11 polyethylene, 35 patella, No. 1 Vicryl fascia, 0 and 2-0 for subcutaneous, 3-0 Monocryl subcuticular with skin glue, and 4-0 undyed Vicryl for pin sites. ESTIMATED BLOOD LOSS: Less than 100 mL. COMPLICATIONS: None. CONDITION: To recovery room in stable condition. DESCRIPTION OF OPERATIVE PROCEDURE: Patient was taken to the operating room on July 09, 2019. Regional and general anesthesia was administered by the anesthesiologist. IV Kefzol and TXA were administered by the anesthesiologist. Well-padded pneumatic tourniquet was placed on the proximal thigh. The left lower extremity was prepped and draped in the usual sterile fashion. The leg was exsanguinated with an Esmarch bandage, and tourniquet was inflated to 275 mmHg. A 12- to 15-cm longitudinal midline incision was incised while centered over the patella. The dissection was carried down to the level of the extensor mechanism with sufficient flaps made to adequately perform the procedure. A medial parapatellar arthrotomy was then performed. We made a cuff of tissue on the patella for later closure. The patella was inverted, the knee was flexed up. The fat pad was excised. The subperiosteal dissection was on the anteromedial proximal tibia around towards the direction of the MCL. The ACL and the PCL were transected and debrided. The meniscal remnants of the medial and lateral meniscus were debrided and removed. This allowed the knee to be able to "be brought forward." The checkpoints were malleted into the tibia and into the femur. Two threaded pins were drilled anteroposteriorly proximal to the knee through the previous incision, through the anterior cortex, then just engaging the posterior cortex. To these pins was assembled the femoral navigation array. One handbreadth below the tibial tubercle, 2 stab incisions were used to drill 2 threaded pins in parallel fashion into the tibia, again through the anterior cortex and just engaging the posterior cortex. To these pins was fastened the tibial arrays. The knee was then registered with the navigation device with center of rotation of the hip, medial and lateral malleoli, both checkpoints, and multiple points on both the femur and the tibia to ensure excellent registration. The navigation device was directed off the "top of the bubbles" on both the femur and the tibia. The navigation passed within less than 0.5 mm to plan. The knee was then thoroughly inspected to remove all osteophytes both medially, laterally, and on the femur and the tibia, and whatever osteophytes were available for dissection. The knee was then taken to extension and to flexion and stressed in both varus and valgus to assess flexion gaps. The virtual position of the components on the navigation device were then manipulated to optimize the position and to ensure equal gaps in both flexion and extension, and both medially and laterally. The robot was then brought into the field and was registered. The cuts were then made both on the femur and on the tibia as to plan. All osteophytes posteriorly were then removed as well. The gaps were then measured again in flexion and extension to be equal in both flexion and extension and medial and laterally. The femoral notch was then made, as we were doing a posterior stabilizing component, with the appropriate sized box. Trial reduction of the femur achieved excellent [id number] fit. A tibial baseplate of appropriate polyethylene thickness was "floated in the knee." It was ensured to be in the excellent position by navigation devices and was pinned in place. The knee was taken through a range of motion and found to have excellent stability throughout flexion and extension. The patella was calibrated for thickness and osteotomized down to the appropriate level. The appropriate lollipop was used to drill the lug holes in the patella and the trial button was applied. The knee was taken through a range of motion and found to have excellent tracking of the patella, and patella from full extension to full flexion. Trial components were removed, the keel was punched and drilled, and a sclerotic bone on the tibia was drilled to help with cement interdigitation. The knee was thoroughly irrigated with the pulse antibiotic training director. The real components were then cemented in using monitored arrangement cement techniques with antibiotic cement, and pressurization and extension. After the cement was hardened, the knee was thoroughly inspected to remove any extra cement. The real polyethylene component was then clipped into place. Range of motion, stability, and tracking were as described earlier. The checkpoints and the pins were removed. The knee was thoroughly irrigated with antibiotic irrigation. Vancomycin powder was placed into the knee for antibiotic prophylaxis. The medial parapatellar arthrotomy was then closed using number 1 Vicryl interrupted suture. After closure of the deep layer, the knee was taken through a range of motion, and found to have excellent stability of the patella with no dislocation and no undue tension on the repair. The subcutaneous was pulse antibiotic irrigated, and was then closed with 2-0 Vicryl, 3-0 Monocryl subcuticular with the skin glue for the skin. The distal tibial pin site was irrigated thoroughly as well and then closed with 4-0 undyed Vicryl. A sterile Aquacel dressing was applied, followed by a Cruz dressing. Tourniquet was deflated. Total tourniquet time was approximately 75 minutes. No complications. Patient was awakened from anesthesia and transferred to recovery room in stable condition. Postoperative x-rays revealed excellent position of the components. Nicki [id number]
[2019-07-10] MEDS: oxyCODONE HCL 5 MG TABLET PO PRN (06:39)
[2019-07-10] MEDS: ASPIRIN 325 MG TABLET PO SCH (08:15)
[2019-07-10] MEDS: MULTIVITAMINS (DAILY MVI) TABLET (FP) PO SCH (09:08)
[2019-07-10] MEDS: PANTOPRAZOLE 40 MG TABLET (FP) PO SCH (09:08)
[2019-07-10] MEDS: oxyCODONE HCL 10 MG SUSTAINED ACTING TABLET PO SCH ×2 (09:08→21:19)
[2019-07-10] MEDS: SENNOSIDES/DOCUSATE COMBO (SENNA PLUS) TABLET (UD) PO SCH ×2 (09:09→21:18)
[2019-07-10 09:11] LABS: HEMATOCRIT 35.4 % (35.4-49); HEMOGLOBIN 12.1 GM/dl (11.7-16.9); MCH 27.9 pg (25.7-33.7); MCHC 34.1 g/dl (32.0-35.9); MEAN CELL VOLUME 81.9 fl (80-96); MEAN PLT VOLUME 7.9 fl (7.5-11.1); PLATELET COUNT 364 K/MM3 (134-434); RBC 4.33 M/mm3 (4.00-5.60); RDW 13.9 % (11.9-15.9); WHITE BLOOD COUNT 10.1 K/mm3 (4.0-10.8)
[2019-07-10 09:22] LABS: ALBUMIN 3.5 g/dl (3.4-5.0); BILIRUBIN,TOTAL 0.9 mg/dl (0.2-1); CALCIUM 8.6 mg/dl (8.5-10); CREATININE 0.7 mg/dl (0.55-1.3); POTASSIUM 4.6 mmol/L (3.5-5.1); TOT PROT 6.5 g/dl (6.4-8.2)
--- NOTE | 2019-07-10 20:01 | PN ---
Progress Note (short form) - Note Progress Note: AVSS COMFORTABLE CALF SOFT AND NT NVI ROM 0-70 IMP: DOING WELL PLAN: OOB, PT, DC TO HOME TOMORROW
[2019-07-10] MEDS: TAMSULOSIN HCL 0.4 MG CAP PO SCH (21:18)
[2019-07-11] MEDS ORDERED: PT OWN MED DRAWER 7, Y5N ONE (01:25)
[2019-07-11] MEDS: ACETAMINOPHEN 325 MG TABLET (FP) PO SCH ×2 (03:00→08:18)
[2019-07-11] MEDS: oxyCODONE HCL 5 MG TABLET PO PRN (06:18)
[2019-07-11 06:21] VITALS: BP 114/60; PULSE 89; TEMP 99.5
[2019-07-11] MEDS: ASPIRIN 325 MG TABLET PO SCH (08:18)
[2019-07-11 09:05] LABS: HEMATOCRIT 31.4 % (35.4-49); HEMOGLOBIN 10.8 GM/dl (11.7-16.9); MCH 27.9 pg (25.7-33.7); MCHC 34.2 g/dl (32.0-35.9); MEAN CELL VOLUME 81.6 fl (80-96); MEAN PLT VOLUME 8.1 fl (7.5-11.1); PLATELET COUNT 290 K/MM3 (134-434); RBC 3.85 M/mm3 (4.00-5.60); RDW 13.6 % (11.9-15.9); WHITE BLOOD COUNT 8.1 K/mm3 (4.0-10.8)
[2019-07-11] MEDS: MULTIVITAMINS (DAILY MVI) TABLET (FP) PO SCH (10:11)
[2019-07-11] MEDS: oxyCODONE HCL 10 MG SUSTAINED ACTING TABLET PO SCH (10:11)
[2019-07-11] MEDS: PANTOPRAZOLE 40 MG TABLET (FP) PO SCH (10:12)
[2019-07-11] MEDS: SENNOSIDES/DOCUSATE COMBO (SENNA PLUS) TABLET (UD) PO SCH (10:12)
--- NOTE | 2019-07-11 11:25 | EKG ---
Test Reason : Blood Pressure : / mmHG Vent. Rate : 084 BPM Atrial Rate : 084 BPM P-R Int : 158 ms QRS Dur : 126 ms QT Int : 412 ms P-R-T Axes : 042 000 049 degrees QTc Int : 486 ms NORMAL SINUS RHYTHM POSSIBLE LEFT ATRIAL ENLARGEMENT RIGHT BUNDLE BRANCH BLOCK ABNORMAL ECG NO PREVIOUS ECGS AVAILABLE Confirmed by JN VILLAFANA, ERIBERTO ([id number]) on 07/11/2019 11:24:38 AM Referred By: Clem Pete Confirmed By:ERIBERTO RAGSDALE MD
== END 2019-07-11 12:00 | disposition home health service (06) | DRG 470 ==
LOC: FM/S 08:49
PROVIDERS: ADMIT Orthopaedic Surgery; ATTEND Orthopaedic Surgery
PROC: 0SRD0J9 Replacement of Left Knee Joint with Synthetic Substitute, Cemented, Open Approach (ICD-10-PCS; principal; 2019-07-09 11:47)
DX: M17.12 Unilateral primary osteoarthritis, left knee (principal); I10 Essential (primary) hypertension; N40.0 Benign prostatic hyperplasia without lower urinary tract symptoms
CPT/HCPCS: 36415; 73560-TC-LT-FY; 80053; 85027; 93005; 94760; 97116-GP; 97163-GP